=== PATIENT | male | born 1960 | race Hispanic/Latino ===

== ENCOUNTER 2019-11-03 06:50 | Day surgery (SDC) | payer BC ==
[2019-11-03] MEDS ORDERED: LIDOCAINE MPF (2%) 20 MG/1 ML VIAL 5 ML ONE (07:24)
[2019-11-03] MEDS ORDERED: fentaNYL 100 MCG/2 ML INJ ONE (08:07)
[2019-11-03] MEDS ORDERED: propofoL 200 MG/20 ML VIAL IV ONE (08:08)
[2019-11-03] MEDS ORDERED: LACTATED RINGERS 1,000 ML IV SCH (08:10)
[2019-11-03] MEDS ORDERED: ceFAZolin/STERILE WATER 2 GM/20 ML SYRINGE IV NR (08:10)
[2019-11-03] MEDS ORDERED: ONDANSETRON 4 MG/2 ML INJ IV PRN (08:45)
[2019-11-03] MEDS ORDERED: fentaNYL 100 MCG/2 ML INJ IV PRN (08:45)
--- NOTE | 2019-11-03 08:50 | Anesthesia Consultation ---
Anesthesia Consult and Med Hx Date of service: 11/03/19 - Airway Anesthetic Teeth Evaluation: Good ROM Head & Neck: Inadequate (S/P ACDF-minimal ROM and neck is hurting right now) Mental/Hyoid Distance: Adequate Mallampati Class: Class IV Intubation Access Assessment: Difficult - Pre-Operative Health Status ASA Pre-Surgery Classification: ASA3 Proposed Anesthetic Plan: General - Pulmonary Hx Smoking: Yes (1PPD X 20 YRS) Hx Asthma: Yes ( CHILD) Hx Sleep Apnea: Yes ([place] PRE SCREEN HIGH RISK.) - Cardiovascular System Hx Hypertension: Yes (PT TOOK SELF OFF MEDS X 3 YRS) - Central Nervous System Hx Seizures: No - Gastrointestinal Hx Gastroesophageal Reflux Disease: Yes (CONTROLLED WITH MEDS) - Endocrine Hx Non-Insulin Dependent Diabetes: No Hx Hypothyroidism: Yes (PT TOOK SELF OFF MEDS X 3 YRS) - Other Systems Hx Alcohol Use: Yes (2-3 DRINKS PER DAY) Hx Substance Use: No Hx Cancer: No Hx Obesity: No
[2019-11-03] MEDS ORDERED: MAGNESIUM OXIDE 400 MG TAB PO NR (08:51)
[2019-11-03] MEDS ORDERED: MORPHINE 2 MG/1 ML INJ IV NR (08:51)
[2019-11-03] MEDS ORDERED: ACETAMINOPHEN 500 MG TAB PO NR (08:51)
--- NOTE | 2019-11-03 08:51 | Anesthesia Day of Surgery ---
Anesthesia Day of Surgery - Day of Surgery Patient Examined: Yes Patient H&P Reviewed: Yes Patient is NPO: Yes
[2019-11-03] MEDS ORDERED: MIDAZOLAM 2 MG/2 ML INJ IV NR (09:00)
[2019-11-03] MEDS ORDERED: WATER FOR IRRIG STERILE 2000 ML IR ONE (09:23)
[2019-11-03] MEDS ORDERED: ONDANSETRON 4 MG/2 ML INJ ONE (09:54)
--- NOTE | 2019-11-03 10:03 | Short Stay Summary ---
Short Stay Documentation Date of service: 11/03/19 - History H&P: obtained from office - Allergies and Medications Current Medications: Allergies No Known Allergies Allergy (Verified 10/27/19 17:25) Home Medications Medication Instructions Recorded Confirmed Last Taken Type Famotidine [Pepcid] 20 mg PO DAILY 10/27/19 10/27/19 10/31/19 History HYDROcodone/APAP 5-325 [[place] 1 each PO Q6HR PRN 10/27/19 10/27/19 10/31/19 His tory 5/325] Tamsulosin [Flomax] 0.4 mg PO QDAY 10/27/19 10/27/19 10/31/19 History traMADoL [Ultram] 50 mg PO Q6HR PRN 10/27/19 10/27/19 10/31/19 History Active Medications Acetaminophen (Tylenol) 1,000 mg PO ONCE NR Stop: 11/03/19 16:00 Last Admin: 11/03/19 09:00 Dose: 1,000 mg Documented by: Cefazolin Sodium (Ancef/Sterile Water 2 Gm/20 Ml) 2 gm IV PREOP NR Stop: 11/03/19 16:00 Fentanyl (Sublimaze) 50 mcg IV Q5MIN PRN PRN Reason: Pain , Severe (7-10) Stop: 11/03/19 22:00 Lactated Ringer's (Lactated Ringers) 1,000 mls @ 100 mls/hr IV DIRECT EMY Last Admin: 11/03/19 08:20 Dose: 100 mls/hr Documented by: Magnesium Oxide (Mag-Ox) 400 mg PO ONCE NR Stop: 11/03/19 13:00 Last Admin: 11/03/19 09:00 Dose: 400 mg Documented by: Midazolam HCl (Versed) 2 mg IV PREOP NR Stop: 11/03/19 23:59 Last Admin: 11/03/19 09:00 Dose: 2 mg Documented by: Morphine Sulfate (Morphine) 2 mg IV ONCE NR Stop: 11/03/19 16:00 Last Admin: 11/03/19 09:01 Dose: 2 mg Documented by: Ondansetron HCl (Zofran) 4 mg IV ONCE PRN PRN Reason: Nausea And Vomiting Stop: 11/03/19 16:00 - Brief post op/procedure progress note Date of procedure: 11/03/19 Pre-op diagnosis: rt ureteral stone Post-op diagnosis: same Procedure: cysto, rpg, rt ureteroscopy, basket stone, stent with external string Anesthesia: DINO Surgeon: BETTYE BARRERA Estimated blood loss: none Condition: stable - Hospital course Hospital course: ultram,nocro,macrobid,& post op info on chart - Disposition Condition at discharge: Stable Disposition: DC-01 TO HOME OR SELFCARE Short Stay Discharge Plan Follow up with: PRIMARY CARE, [Primary Care Provider] - 7 Days
--- NOTE | 2019-11-03 10:16 | Operative Report ---
PREOPERATIVE DIAGNOSIS: Right ureteral stone. POSTOPERATIVE DIAGNOSIS: Right distal ureteral stone. PROCEDURE: Cystoscopy, bilateral retrograde pyelograms, right ureteroscopy, basket stone extraction, double-J stent with an external string (6-Iranian, 24 cm). SURGEON: Chuckie Scales MD ANESTHESIA: General. ESTIMATED BLOOD LOSS: Minimal. FLUIDS: Crystalloid. COMPLICATIONS: No complications. INDICATIONS: This patient is a 59-year-old gentleman seen in the office. CT of abdomen and pelvis revealed a 5 mm proximal ureteral stone. Options were discussed with the patient and he agreed to proceed with the surgical intervention. DESCRIPTION OF PROCEDURE: The patient was taken to the operative suite, placed in a supine position. After adequate position, he was prepped and draped in a sterile fashion. Pancystourethroscopy was performed with 22-Iranian Storz cystoscope. No urethral abnormalities. His prostate displayed moderate trilobar obstruction. Bladder, no tumors or stones were noted. Mild trabeculation. Bilateral retrograde pyelograms were obtained with an 8-Iranian [place] catheter and 8 mL of contrast. No filling defects or obstruction on the left. There was some distal obstruction on the right side, prompting further investigation. Two 0.035 Glidewires were placed. Rigid ureteroscopy was performed. A fair amount of edema could be appreciated. A yellow stone was visualized. A 3-Iranian [place]i basket was used to engage the stone. It was extracted without difficulty. Retrograde pyelogram was then shot again, no extravasation. A 6-Iranian 24 cm double-J stent was placed under fluoroscopic guidance with an external string. Bladder was drained. Rectal exam was benign. He was extubated and taken to recovery room. We will give him a stone. He will go home on Macrobid, Ultram, and Lore. JOB# [id number] [facility]
[2019-11-03 11:24] VITALS: BP 156/86
--- NOTE | 2019-11-03 11:26 | Fluoroscopy Report ---
Retrograde urography. HISTORY: Renal calculus. FINDINGS: Both collecting systems were injected in retrograde fashion. Extravasation is seen distally on the right. A double-J stent was placed in satisfactory position. Fluoroscopy time: 55 seconds. 10 fluoroscopic images were obtained. Signer Name: Tomas Howard MD Signed: 11/03/2019 11:21 AM Workstation Name: [id number]
--- NOTE | 2019-11-03 23:15 | Post Anesthesia Evaluation ---
- Post Anesthesia Evaluation Patient Participated: Yes Airway Patent: Yes Stable Respiratory Function: Yes Nausea/Vomiting: No Temp > 96.8F: Yes Pain Manageable: Yes Adequeate Hydration: Yes Anesthesia Complications: No Block Receding Appropriately: Not Applicable Patient on Ventilator: No
== END 2019-11-03 06:51 | disposition home or self-care (01) ==
LOC: OR 06:50
PROVIDERS: ATTEND Urology
DX: N20.1 Calculus of ureter (principal); J45.909 Unspecified asthma, uncomplicated; I10 Essential (primary) hypertension; K21.9 Gastro-esophageal reflux disease without esophagitis; E03.9 Hypothyroidism, unspecified; E78.00 Pure hypercholesterolemia, unspecified; G47.33 Obstructive sleep apnea (adult) (pediatric); F17.210 Nicotine dependence, cigarettes, uncomplicated; Z72.89 Other problems related to lifestyle; Z79.899 Other long term (current) drug therapy; Z98.890 Other specified postprocedural states; Z71.3 Dietary counseling and surveillance
CPT/HCPCS: 52332; 52352; 74420; A4217; C1758; C1769; C2617; J0690; J2250; J2270; J2405; J2704; J3010; J7120; Q9967